=== PATIENT | male | born 1975 | race Caucasian/White ===

== ENCOUNTER 2024-12-08 14:03 | Emergency (ER) | payer MEDICAID ==
[~2024-12-08] VITALS: Ht 185.4 cm; Wt 88.9 kg
[2024-12-08] MEDS ORDERED: AMOXICILLIN-CLAVUL 875-125MG TABLET ONE (14:30)
[2024-12-08] MEDS ORDERED: DEXAMETHASONE SOD PHOSPHATE 4 MG INJ ONE (14:30)
[2024-12-08] MEDS ORDERED: NEOMY/BACITRA/POLYMYXIN B OINT UD PACKET TP ONE (14:30)
[2024-12-08] MEDS ORDERED: PRED50TA PO (14:37)
[2024-12-08] MEDS: DEXAMETHASONE SOD PHOSPHATE 4 MG INJ IM ONE (14:37)
[2024-12-08] MEDS ORDERED: AMOX-430 PO (14:37)
[2024-12-08] MEDS: AMOXICILLIN-CLAVUL 875-125MG TABLET PO ONE (14:37)
[2024-12-08] MEDS: NEOMY/BACITRA/POLYMYXIN B OINT UD PACKET TP ONE (14:37)
[2024-12-08 14:44] VITALS: O2SAT 97
== END 2024-12-08 14:45 | disposition home or self-care (01) ==
LOC: ER 14:03
DX: L25.9 Unspecified contact dermatitis, unspecified cause (principal); L08.9 Local infection of the skin and subcutaneous tissue, unspecified
CPT/HCPCS: 99283; 96372; J1100; A4606; A4663